=== PATIENT | female | born 1980 | race Caucasian/White ===

== ENCOUNTER 2024-12-08 17:30 | Inpatient (IN) | payer MEDICAID ==
[~2024-12-08] VITALS: Ht 162.6 cm; Wt 50.0 kg
--- NOTE | 2024-12-08 17:35 | ELECTROCARDIOGRAPH REPORT ---
[facility] Test Date: 2024-12-08 Test Time: 17:33:03 Pat Name: KORIN COLBERT Department: EMERGENCY ROOM Room: Gender: F Diesel Fitter Mechanic: EFREM : 1980 Requested By: DHRUV REICH Order Number: [id number] Reading MD: Measurements Intervals [place] Rate: 73 P: 55 OR: 123 QRS: 83 QRSD: 87 T: 83 QT: 443 QTc: 489 Interpretive Statements Sinus rhythm Probable anterior infarct, old Please click the below link to view image of tracing.
[2024-12-08 18:10] LABS: MEAN PLATELET VOLUME 8.4 FL (7.4-10.4); RED CELL DISTRIBUTION WIDTH 13.2 % (11.5-14.5)
--- NOTE | 2024-12-08 18:17 | RADIOLOGY REPORT ---
DI CHEST,SINGLE VIEW, HISTORY: CP COMPARISON: None None TECHNICAL DATA: 1 view of the chest was obtained. FINDINGS: Lines and tubes: None Cardiomediastinal silhouette: normal Pulmonary vasculature: normal Lung expansion: normal Lung airspace: normal Lung interstitium: normal Pleura: normal Pneumothorax: no Bones: Unremarkable Other: no IMPRESSION: No acute intrathoracic abnormality.
[2024-12-08 18:32] LABS: CREATININE 0.60 MG/DL (0.40-0.90); PRO BRAIN NATRIURETIC PEPTIDE 1672 PG/ML (0-125); TOTAL CARBON DIOXIDE 23.3 MMOL/L (24-32); eCRCL 102 ML/MIN; eGFR > 90 ML/MIN
--- NOTE | 2024-12-08 18:40 | Physician Documentation ---
History of Present Illness ~ Chief Complaint: Chest Pain Stated Complaint: CP Time Seen by MD: 18:14 Source: patient Mode of Arrival: Air Transport Exam Limitations: no limitations HPI 44-year-old female was transferred from [facility] for NSTEMI and pancreatitis. Patient came in to the hospital where yesterday with complaints of nausea vomiting and chest pain with elevated tropes and lipase. Patient had heparin drip initiated prior to arrival. Patient is a smoker with other history including bipolar, anxiety and depression. Patient states that the chest pain and nausea vomiting started yesterday while getting ready for bed and taking a shower she states that potentially she was having palpitations throughout the week which she attributed to her anxiety about wants to nausea and vomiting started she went to the hospital. Troponin at 10:00 p.m. on December 07 was 94.9 and 115.1 lipase was 112[address] Patient's CT scan shows pneumonia being treated with ceftriaxone and azithromycin prior to arrival at our facility troponins also improving prior to transfer Medication Reconciliation Allergies: Coded Allergies: levofloxacin (Unverified Allergy, Intermediate, 12/08/24) Past Medical History Past Medical History: Asthma, COPD, Inflammatory Bowel Dz, Kidney Stones, Anxi ety, Bipolar, Depression, Panic Disorder Past Surgical History: noncontributory Smoking Status: Current every day smoker Drug Use: marijuana Lives with: Family Lives In: Home Review of Systems All Other Systems at this time: Reviewed and Negative Cardiovascular: Reports: see HPI Physical Exam Vital Signs: RN Vital Signs have been reviewed: Yes, Temperature: 98.2, Source: Temporal, Heart Rate: 80, Respiratory Rate: 16, BP: 125/97, Pulse Oximetry: 98, Weight: 56.000 Oxygen Flow Rate: 0 Physical Exam General: Alert, no apparent distress. HEENT: PERRL, EOMI, no injection, moist mucous membranes. Neck: Full range of motion. Respiratory: Coarse rhonchi auscultated posterior bilaterally good air movement speaking in full sentences no respiratory distress noted. Chest: No accessory muscle use. Cardiovascular: Regular rate and rhythm, no murmurs. Extremities: Normal range of motion, no deformity. Neurologic: Oriented x4. Psychiatric: Normal mood and affect. Skin: Normal color, warm and dry. No edema, no ecchymosis. Progress Results/Orders Results/Orders Orders - KEVIN,ELHAM K SHORE WORKING SUPERVISOR Heparin 10,000 Unit/Ml 1ml (Heparin 10,0 (12/08/24 18:50) Cbc/Diff (12/09/24 03:00) Cbc/Diff (12/10/24 03:00) Cbc/Diff (12/11/24 03:00) Cbc/Diff (12/12/24 03:00) Cbc/Diff (12/13/24 03:00) Page Hospitalist (12/08/24 18:47) Fill Out Med Reconciliation (12/08/24 18:47) Heparin 25,000 Unit/250ml Bag (Heparin 2 (12/08/24 19:01) Completed Orders - ELHAM BROWN SHORE WORKING SUPERVISOR Heparin 25,000 Unit/250ml Bag (Heparin 2 (12/08/24 18:50) Heparin 10,000 Unit/Ml 1ml (Heparin 10,0 (12/08/24 19:05) Message To Nursing (12/08/24 19:10) Vital Signs 12/08/24 12/08/24 12/08/24 12/08/24 17:33 18:14 18:14 18:42 Temp 98.2 Pulse 82 80 Resp 16 16 18 16 B/P (MAP) 147/114 125/97 (106) Pulse Ox 98 98 O2 Flow Rate 0 0 Laboratory Tests Test 12/08/24 17:55 White Blood Count 8.6 Red Blood Count 4.95 Hemoglobin 14.9 Hematocrit 44.4 Mean Corpuscular Volume 89.5 Mean Corpuscular Hemoglobin 30.0 Mean Corpuscular Hemoglobin Concent 33.5 Red Cell Distribution Width 13.2 Platelet Count 386 Mean Platelet Volume 8.4 Neutrophils (%) (Auto) 60.0 Lymphocytes (%) (Auto) 27.0 Monocytes (%) (Auto) 10.8 Eosinophils (%) (Auto) 1.6 Basophils (%) (Auto) 0.6 Neutrophils # (Auto) 5.1 Lymphocytes # (Auto) 2.3 Monocytes # (Auto) 0.9 Eosinophils # (Auto) 0.1 Basophils # (Auto) 0.1 CBC Comment APTT (Heparin Protocol) 26 L Coagulation Comments Sodium Level 137 Potassium Level 3.5 Chloride Level 104 Carbon Dioxide Level 23.3 L Anion Gap 10 Blood Urea Nitrogen 13 Creatinine 0.60 Estimated GFR/1.73 m2 > 90 BUN/Creatinine Ratio 21.7 H Glucose Level 87 Calcium Level 8.1 L Troponin I High Sensitivity 32 Pro-B-Type Natriuretic Peptide 1672 H Albumin 3.3 L Chemistry Comments EKG/XRAY/CT/US/VASC/MRI Chest X-Ray : Additional Comments DI CHEST,SINGLE VIEW, HISTORY: CP COMPARISON: None None TECHNICAL DATA: 1 view of the chest was obtained. FINDINGS: Lines and tubes: None Cardiomediastinal silhouette: normal Pulmonary vasculature: normal Lung expansion: normal Lung airspace: normal Lung interstitium: normal Pleura: normal Pneumothorax: no Bones: Unremarkable Other: no IMPRESSION: No acute intrathoracic abnormality. Heart Score: Heart Score Response (Comments) Value History Highly Suspicious 2 EKG Normal 0 Age 45-64 1 Risk Factors 1 or 2 risk factors 1 Troponin 1-2 x's Normal limit 1 Total 5 Medical Decision Making Findings Transfer from [facility]. Heparin drip restarted. Admitting for pancreatitis NSTEMI with an elevated lipase as she had some nausea vomiting and some abdominal pain prior to arrival. Patient is a cigarette smoker. Will admit for further workup. Departure Time of Disposition: 19:12 Disposition: 09 ADMITTED INPATIENT Impression: Primary Impression: NSTEMI (non-ST elevated myocardial infarction) Additional Impressions: Pneumonia Pancreatitis Condition: Guarded Referrals: NO PRIMARY CARE PROVIDER (PCP) Education Educated: Patient Educated regarding: diagnosis, treatment, need for follow up Signature Scribe Signature: No scribe Attestation: The note accurately reflects work and decisions made by me.Elham ORELLANA 12/08/24 18:46 ELHAM BROWN NP Dec 08, 2024 18:40
[2024-12-08] MEDS ORDERED: heparin 25,000 UNIT/250ml bag 250 ML IV PRN (18:50)
[2024-12-08] MEDS ORDERED: heparin 10,000 units/1 ML INJ IV PRN (18:50)
[2024-12-08] MEDS ORDERED: HYDROmorphone/PF 0.2 MG/ML SYRINGE IV PRN (19:10)
[2024-12-08] MEDS ORDERED: HYDROcodone/acetaminophen 10/325mg tab PO PRN (19:10)
[2024-12-08] MEDS ORDERED: potassium Cl 20 mEq SR tablet PO PRN ×2 (19:10)
[2024-12-08] MEDS ORDERED: magnesium Cl slow-release 64mg tablet PO PRN (19:10)
[2024-12-08] MEDS ORDERED: mag hydrox/Alum hydrox/simeth 30ml oral suspension PO PRN (19:10)
[2024-12-08] MEDS ORDERED: magnesium hydroxide 30ml (MOM) UD suspension PO PRN (19:10)
[2024-12-08] MEDS ORDERED: HYDROcodone/acetaminophen 5mg/325mg tablet PO PRN (19:10)
[2024-12-08] MEDS ORDERED: magnesium sulf-water 2g/50mL 50 ML IV PRN (19:10)
[2024-12-08] MEDS ORDERED: magnesium sulf-water 4G/100mL 100 ML IV PRN (19:10)
[2024-12-08 19:11] LABS: INR 1.1 INR
[2024-12-08] MEDS: heparin 25,000 UNIT/250ml bag 250 ML IV PRN (19:15)
[2024-12-08] MEDS: heparin 10,000 units/1 ML INJ IV ONE (19:16)
[2024-12-08] MEDS: MESSAGE TO NURSING IV ONE (19:18)
[2024-12-08] MEDS: K and/or MAG REPLACEMENT MC SCH (19:37)
[2024-12-08] MEDS: normal saline 1000ml 1,000 ML IV SCH (19:41)
[2024-12-08] MEDS: docusate sod 100mg capsule PO SCH (19:44)
[2024-12-08] MEDS ORDERED: GABA-530 PO (20:06)
[2024-12-08] MEDS ORDERED: QUET25TA PO (20:06)
--- NOTE | 2024-12-08 21:13 | RADIOLOGY REPORT ---
INDICATION: Pancreatitis TECHNIQUE: Multiple real-time sonographic images were obtained of the right upper quadrant. COMPARISON: None FINDINGS: The liver demonstrates normal homogeneous echotexture without focal mass lesions. The liver measures 16.2 cm. Normal hepatopetal portal flow identified. No evidence of abdominal ascites or ple ural effusion. There is no intrahepatic or extrahepatic ductal dilatation. The common duct measures 0.3 cm. The gallbladder is without evidence of stone or sludge. The gallbladder wall measures 0.2 cm and is w ithin normal limits. Negative sonographic khalil's sign. The right kidney measures 12.2 cm. The right kidney is normal in contour, size, and shape. The echoge nicity is normal. Dilated renal pelvis versus mild hydronephrosis. The left kidney measures 10.4 cm. The left kidney is normal in contour, size, and shape. The echoge nicity is normal. Dilated renal pelvis versus mild hydronephrosis. The pancreas is grossly normal in appearance. The spleen is unremarkable, measuring 8.2 cm in length. The inferior vena cava is within normal limits. IMPRESSION: 1. Grossly unremarkable right upper quadrant sonogram. 2. Dilated bilateral renal pelves versus mild hydronephrosis.
[2024-12-08 21:30] VITALS: BP 135/91; PULSE 77; RESP 16; TEMP 98.6; O2SAT 95
[2024-12-08] MEDS: HYDROmorphone inj. 0.5 MG/0.5 ML DISP.SYRIN IV PRN (21:59)
--- NOTE | 2024-12-08 22:06 | HISTORY AND PHYSICAL-Residence ---
History & Physical Providers to CC Resident Creating Document: ISABEL ENRIQUEZ, RES ~ History of Present Illness Reason for Admit\Complaint: Chest pain History of Present Illness This is a 44-year-old female with a history of ADHD, anxiety, kidney stones, active tobacco use was transferred from the ER of [facility] for management of chest pain, pneumonia, pancreatitis. Patient endorses that she had a sharp pain in the left side of her chest about 9/10 in intensity radiating to the left hand associated with diaphoresis last night. She visited the nearest ER at [facility] and was given aspirin, nitroglycerin with partial relief of the pain. Serial troponins were 115, 949. Heparin drip was started and she was transferred to [facility] for further management and Cardiology consultation. Patient also endorses that she had cough with greenish brown sputum production since two days. CT scan of the chest shows multiple centrilobular pulmonary opacities in the left lower lobe suggestive of pneumonia. She also endorses having nausea, four episodes of vomiting, dry heaving and abdominal pain since the last two days. Patient has a remote history of on and off pancreatitis. She denies any fever, orthopnea, PND, palpitations, syncopal episodes. Patient endorses a strong family history of cardiac disease including CA s/p nine stents in mother with 1st heart attack at 48, CA in aunt and grandmother. Allergies: Coded Allergies: levofloxacin (Unverified Allergy, Intermediate, 12/08/24) Home Medications Home Medications Active Reported Gabapentin 100 Mg Capsule 3 Cap PO Q8H 30 Days Seroquel (Quetiapine Fumarate) 25 Mg Tablet 1 Tab PO HS 30 Days Past Medical History Past Medical History ADHD, anxiety, kidney stones, endometrial cysts Past Surgical History Surgical History Comment Tubal ligation Past Social History Social History Comment Smokes about 5-6 cigarettes a day, used to smoke about one pack per day since 25 years. Quit intermittently for eight years and restarted again. Denies heavy alcohol use, drinks about 2-3 drinks on weekends. Denies any drug use. Lives with the family at home Drug Use: Marijuana Lives with: Family Lives In: Home ROS All Other Systems: Reviewed and Negative ROS Reviewed and negative except for the pertinent positives in HPI Cardiovascular: Reports: see HPI Exam Vitals: Vital Signs Date Time Temp Pulse Resp B/P (MAP) Pulse Ox O2 Delivery O2 Flow Rate FiO2 12/08/24 21:36 78 12/08/24 21:30 98.6 16 135/91 (106) 95 Room Air 12/08/24 18:14 0 General: General: Alert, no apparent distress. HEENT: PERRL, EOMI, no injection, moist mucous membranes. Neck: Supple, no masses Full range of motion. Respiratory: Coarse rhonchi auscultated posterior more in the left lower lobe, decreased air entry, no respiratory distress noted. Bilateral wheezing in both lung matthew. Chest: No accessory muscle use. Cardiovascular: Regular rate and rhythm, no murmurs. Extremities: Normal range of motion, no deformity. Neurologic: Oriented x4. Psychiatric: Normal mood and affect. Skin: Normal color, warm and dry. No edema, no ecchymosis. Diagnostic Data Last Recorded Lab Results: 12/08/24175412/08/24 175 Diagnostic Data: Laboratory Tests Test 12/08/24 17:55 Prothrombin Time 10.8 SECONDS (9.0-12.0) INR International Normalized Ratio 1.1 INR APTT (Heparin Protocol) 26 SECONDS (45-60) L Coagulation Comments Advance Care Planning Advanced Care plannin - 30 Minutes (I spent a total of 17 minutes on reviewing various resuscitative measures/ ACP with the patient at the time of admission. The patient has decided on a full code status) Additional Plan Left lower lobe community-acquired pneumonia CT chest at the previous facility showed multiple centrilobular pulmonary opacities in the left lower lobe suggestive of pneumonia. Started on ceftriaxone, Zithromax and IV fluids NS at 100 mL/hour. Patient also has bilateral wheezing, no official diagnosis of COPD. Started on DuoNebs q.4 scheduled Chest pain, rule out ACS Troponins at the previous facility were 115, 949. Patient was started on heparin drip prior to transfer. Serial troponins here were 32, 30, 29. EKG shows sinus rhythm with no evidence of ST changes or T-wave changes. Discontinued heparin drip. Pro BNP slightly elevated at 1672. No evidence of orthopnea, PND, raised JVP, pedal edema. Follow up with the echocardiogram. Consult Cardiology in the a.m to rule out ACS. Patient has a strong family history of CA, heart score four Elevated lipase Acute abdominal pain Lipase was slightly elevated at 113. Started on IV fluids NS at the rate of 100 mL/hour. Mild Protein calorie malnutrition History of ADHD, anxiety Code Status: Full code DVT Prophylaxis: Heparin Analgesia/Sedation: [place], morphine p.r.n. Lines/Tubes: PIV Gi Prophylaxis: None Nutrition: Clear liquid diet, advance as tolerated PT: Yes Prognosis: Guarded Disposition: Admit to PCU with telemetry monitoring Isabel Pillai MD Internal Medicine Resident PGY-1 Nocturnal nightclub manager attestation of resident HP. Attestation of HP only, care immediately directed to hospitalist team - Trops neg at [place] - Stop hep gtt - Asa, statin - Augmentin x 5 days - Cardio eval - Alisha DVT proph Patient seen through remote audiovisual assessment through HIPAA compliant setup. All labs, flowsheets, and images reviewed. Date of Service: Dec 08, 2024 Billing Provider: MANUEL ALMEIDA Jr., DEEPIKA BANDI, RES Dec 08, 2024 22:06 MANUEL ALMEIDA Jr., DO Dec 09, 2024 01:48
[2024-12-09] VITALS (14 sets, daily range): BP systolic 114–141; BP diastolic 35–98; PULSE 78–109; RESP 14–20; TEMP 97.6–98.6; O2SAT 94–99
[2024-12-09 06:18] LABS: MEAN PLATELET VOLUME 8.3 FL (7.4-10.4); RED CELL DISTRIBUTION WIDTH 13.0 % (11.5-14.5)
[2024-12-09 06:45] LABS: CHOL/HDL RATIO 2.2 (0.00-4.99); CREATININE 0.51 MG/DL (0.40-0.90); LDL CHOLESTEROL 51 MG/DL (50-100); TOTAL CARBON DIOXIDE 25.1 MMOL/L (24-32); eCRCL 110 ML/MIN; eGFR > 90 ML/MIN
[2024-12-09] MEDS: ondansetron/PF 4mg/2ml inj IV PRN (06:52)
[2024-12-09] MEDS: CefTRIAXone/D5W-Rocephin 1gm 50 ML IV SCH (08:41)
[2024-12-09] MEDS: azithromycin/NS 500mg/250ml 250 ML IV SCH (08:42)
[2024-12-09] MEDS ORDERED: metoprolol tartrate 1mg/ml inj IV PRN (11:20)
[2024-12-09] MEDS ORDERED: aminophylline 250mg/10ml inj. IV PRN (11:20)
[2024-12-09] MEDS ORDERED: iohexol 300mg/ml 100ml inj. ONE (14:12)
[2024-12-09] MEDS: regadenoson 0.4mg/5ml syringe IV PRN (15:24)
[2024-12-09] MEDS: potassium Cl 40MEQ/1/2NS 520ml 520 ML IV PRN (16:51)
--- NOTE | 2024-12-09 18:33 | RADIOLOGY REPORT ---
Exam: CT CT CHEST ABDOMEN PELVIS IV CON W/ IV CONTRAST History: left up quadrant ab pain Comparison Study: None Technique: Multidetector spiral CT of the chest, abdomen and pelvis was performed from lower neck to pubic symphysis. Intravenous contrast was administered during this examination. Portal venous imagi ng was obtained. Axial, coronal and sagittal multiplanar reformats were performed by the technologist on a separate workstation. Radiation Dose : 1. Chest/Abdomen/Pelvis: CTDIvol 6 mGy, DLP 317 mGy*cm. Findings: Lower neck: Normal thyroid. Lungs: Left lower lobe pneumonia. Heart/Vascular Structures: Normal heart size. No pericardial effusion. Lymph Nodes: No adenopathy Pleura: No pleural effusion or significant pneumothorax. Liver: The liver is normal in size. No focal lesions. Normal hepatic vascular enhancement. Gallbladder and Biliary Tree: Unremarkable Spleen: Unremarkable Pancreas: The pancreas is normal in appearance without focal lesions or abnormal enhancement. Adrenal Glands: Unremarkable Kidneys: Kidneys demonstrate normal symmetric enhancement without focal lesions, calculi or hydroneph rosis. Bladder: Unremarkable Bowel: The stomach is grossly normal in appearance. Approximately 5 cm segment of intussusception is seen in a loop of small bowel in the lateral left upper quadrant. The appendix is not visualized; h owever, no secondary findings of acute appendicitis identified. Ascites: Absent Lymphadenopathy: No mesenteric, retroperitoneal or periportal lymphadenopathy. Abdominal Wall and Mesentery: Unremarkable. Vasculature: The visualized abdominal aorta is normal in size and caliber. Abdominal and pelvic vess els demonstrate normal enhancement. Pelvic Organs: IUD is in good position. Uterus is intact. Musculoskeletal: No aggressive focal bony lesions, acute fractures or dislocation. IMPRESSION: 1. Approximately 5 cm segment of intussusception is seen in a loop of small bowel in the lateral left upper quadrant. 2. Left lower lobe pneumonia.
--- NOTE | 2024-12-09 18:48 | CARDIOLOGY REPORT ---
APPROVED REPORT EXAM: Comprehensive 2D, Doppler, and color-flow Echocardiogram. Patient Location: 3023 A Blood Pressure: 134/90 mmHg Heart Rate: 76 bpm Rhythm: SINUS Indications CHEST PAIN ELEVATED PROBNP (1672) Combine Inspector: none Previous echo: none 2D Dimensions RVDd 3.2 cm IVSd 1.0 (0.7-1.1cm) LVDd 4.4 cm PWd 1.1 (0.7-1.1cm) IVSs 1.3 (0.8-1.2cm) LVDs 3.2 (2.5-4.0cm) PWs 1.5 (0.8-1.2cm) LVOT Diameter 2.18 (1.8-2.4cm) LVEF(%) 54.9 (>50%) FS (%) 28.3 % SV 48.7 ml CO 3.3 L/min M-Mode Dimensions Left Atrium(MM) 3.14 (2.5-4.0cm) IVSd 0.83 (0.7-1.1cm) LVDd 4.52 (4.0-5.6cm) Aortic Root 4.00 (2.2-3.7cm) PWd 0.96 (0.7-1.1cm) Aortic Cusp Exc 2.08 (1.5-2.0cm) IVSs 1.03 cm MV EPSS 0.3 (<0.5cm) LVDs 3.49 (2.0-3.8cm) FS (%) 23 % PWs 1.35 cm ESV(Teich) 50.6 ml LVEF(%) 46 (>50%) Aortic Valve AoV Peak Cale. 103.8 cm/s AoV VTI 13.9 cm AO Peak GR. 4.3 mmHg AO Mean GR. 3 mmHg LVOT VTI 16.26 cm LVOT Peak Cale. 96.0 cm/s RYLAN(VTI)/BSA 4.36 cm2/m2 RYLAN (VTI) 4.36 cm2 Mitral Valve MV E Velocity 41.4 cm/s MV Peak Gr. 3 mmHg MV DECEL TIME 296 ms MV A Velocity 54.7 cm/s MV PHT 44 ms E/A Ratio 0.8 MVA (PHT) 5.00 cm2 MV VMax91.6 cm/s TDI Medial E' P. V 7.09 cm/s E/Medial E' 5.8 Pulmonary Vein S1 Velocity 69.4 cm/s D2 Velocity 46.9 cm/s PVa Nihxzlfd07.7 cm/s PVa Kaktovvs663 msec LEFT VENTRICLE Normal LV size and wall thickness. Overall systolic function is mildly reduced to low normal. LVEF is 50-55%. RIGHT VENTRICLE RV is mildly dilated with normal systolic function. ATRIA LA size is normal. RA size is normal. Mobile interatrial septum - no flow detected. AORTIC VALVE Trileaflet AV appears mildly sclerotic without stenosis. Mild insufficiency. MITRAL VALVE Mild MV annular calcification without stenosis. Trace regurgitation. TRICUSPID VALVE TV appears structurally normal with trace regurgitation. PULMONIC VALVE Normal PV without stenosis, physiologic insufficiency. GREAT VESSELS Aortic root is dilated and appears abnormal. ?Intimal tear at the sinus of Valsalva. Recommend clinic al correlation if indicated. Ascending aorta is not well visualized. PERICARDIUM Normal pericardium. No effusion. Other Information Study Quality: Adequate Conclusion Normal LV size and wall thickness. Overall systolic function is mildly reduced to low normal. LVEF is 50-55%. RV is mildly dilated with normal systolic function. LA size is normal. RA size is normal. Mobile interatrial septum - no flow detected. Trileaflet AV appears mildly sclerotic without stenosis. Mild insufficiency. Mild MV annular calcification without stenosis. Trace regurgitation. TV appears structurally normal with trace regurgitation. Aortic root is dilated and appears abnormal. ?Intimal tear at the sinus of Valsalva. Recommend clinic al correlation if indicated. Normal pericardium. No effusion.
[2024-12-09] MEDS: enoxaparin 40mg/0.4ml syringe SUBCUT SCH (19:58)
--- NOTE | 2024-12-09 20:02 | PROGRESS NOTE ---
Daily Progress Note Providers to CC ~ Antibiotic Timeout Antibiotic Ordered?: Yes Subjective The Patient informs me that she has had episodes that are intermittent where she can not eat food and everything makes her nauseate the patient also has a moderate to significant amount of tenderness in the left lower quadrant on exam of her abdomen a CT scan was obtained with IV contrast that demonstrated likely intussusception in the small bowel in the left upper quadrant I reviewed the case with Dr. Garcia surgeon who recommended a CT scan with the overnight oral contrast prep Objective Vital Signs Date Time Temp Pulse Resp B/P (MAP) Pulse Ox O2 Delivery O2 Flow Rate FiO2 12/09/24 15:22 101 16 139/90 94 Room Air 0.0 12/09/24 11:00 97.8 Result Diagram: 12/09/2448 12/09/24 0548 Gen. No acute distress alert and oriented 4 Lungs clear to ascultation bilaterally, no wheezes rales or rhonchi appreciated Heart normal sinus rhythm no murmurs rubs or clicks noted Abdomen soft nontender bowel sounds are normoactive Lower extremities no clubbing cyanosis, nor edema appreciated bilaterally Coagulation Studies Laboratory Tests Test 12/08/24 17:55 Prothrombin Time 10.8 SECONDS (9.0-12.0) INR International Normalized Ratio 1.1 INR APTT (Heparin Protocol) 26 SECONDS (45-60) L Coagulation Comments Problem\Assessment\Plan Problems/Diagnosis: (1) Pancreatitis Left lower lobe community-acquired pneumonia CT chest at the previous facility showed multiple centrilobular pulmonary opacities in the left lower lobe suggestive of pneumonia. Started on ceftriaxone, Zithromax and IV fluids NS at 100 mL/hour. Patient also has bilateral wheezing, no official diagnosis of COPD. Started on DuoNebs q.4 scheduled Acute on chronic abdominal pain Pancreatitis Triglyceride levels are normal Daily lipase is ordered CT scan of the abdomen and pelvis with IV contrast demonstrated intussusception in the small bowel in the left upper quadrant I discussed the case with Dr. Garcia surgeon who recommended the CT scan of the abdomen and pelvis with the overnight oral contrast prep Mild Protein calorie malnutrition History of ADHD, anxiety Evaluated by registered dietitian Chest pain Elevated troponin at an outside facility Echocardiogram is unremarkable Lexiscan stress test is obtain awaiting radiology read Hypokalemia On potassium replacement protocol Date of Service: Dec 09, 2024 Billing Provider: ROBACK,ARVIND T DO Common Visit Codes: [id number] INP/OBS CARE(HIGH) ARVIND SHOEMAKER DO Dec 09, 2024 20:02
[2024-12-09] MEDS: diatr meglu/diatrizoate 30ml oral sol.-(3 dose) bottle PO SCH (21:29)
--- NOTE | 2024-12-10 05:09 | RADIOLOGY REPORT ---
Reason for study/Clinical History: chest pain Comparison Study: None Myocardial Perfusion Study with SPECT Technique: The patient received an intravenous injection of 6.7 mCi of technetium-99m Sestamibi whi boogie at rest. After a short delay, SPECT tomographic images of the heart were obtained. The patient laurel carrizales went to the stress lab where they received an intravenous Lexiscan utilizing standard protocol. 29 mCi of technetium-99m Sestamibi was injected intravenously immediately after the start of the in fusion. Gated SPECT tomographic images of the heart were acquired and processed. Findings: Rotating planar images show no significant attenuation artifact. The left ventricular size is within normal limits. Subtle reversible defect in the anterior wall. The left ventricular ejection fraction is 48 %. (normal greater than 50%) Impression: Subtle reversible defect is present in the anterior wall seen on horizontal long axis views. This is felt to most likely represent artifact versus less likely small area of the ischemia. Clinical sharif elation advised.
[2024-12-10 05:42] LABS: MEAN PLATELET VOLUME 8.4 FL (7.4-10.4); RED CELL DISTRIBUTION WIDTH 12.9 % (11.5-14.5)
[2024-12-10 05:57] LABS: CREATININE 0.56 MG/DL (0.40-0.90); TOTAL CARBON DIOXIDE 25.0 MMOL/L (24-32); eCRCL 100 ML/MIN; eGFR > 90 ML/MIN
[2024-12-10 06:00] VITALS: BP 140/97; PULSE 76; RESP 14; TEMP 97.3; O2SAT 98
[2024-12-10 08:00] VITALS: RESP 14; O2SAT 98
[2024-12-10] MEDS: aspirin 81mg, enteric-coated 1 TAB TABLET.DR PO SCH (08:00)
--- NOTE | 2024-12-10 08:56 | RADIOLOGY REPORT ---
Exam: CT CT ABDOMEN PELVIS W/ ORAL CONTRAST History: Intussusception seen on small-bowel in the left upper quadrant Comparison Study: CT scan of the abdomen pelvis performed on 12/09/2024. Technique: Multidetector spiral CT of the abdomen and pelvis was performed from lung bases to pubic s ymphysis. Imaging was performed without intravenous contrast. Enteric contrast was given. Coronal and sagittal multiplanar reformats were obtained from the axial data set by the technologist. Radiation Dose : 1. Abdomen/Pelvis: CTDIvol 7.3 mGy, DLP 349.66 mGy*cm. Findings: Evaluation of vasculature and solid organs is limited due to lack of intravenous contrast use. Lung Bases: Left lower lobe infiltrate similar to prior study. Normal heart size. No pericardial ef fusion. Liver: The liver is normal in size. No focal lesions. Gallbladder and Biliary Tree: The gallbladder is unremarkable. No intrahepatic or extrahepatic bilia ry ductal dilatation. Spleen: Unremarkable Pancreas: The pancreas is grossly unremarkable. Adrenal Glands: Unremarkable Kidneys: Kidneys are unremarkable without calculi or hydronephrosis. GI tract: The stomach is grossly normal in appearance. Enteric contrast opacifies the stomach as well as several nondilated small bowel loops. The previously seen jejunal - jejunal intussusception in t he left upper quadrant has resolved. There is enteric contrast scattered throughout the ascending, tr ansverse and descending colon without wall thickening. Normal caliber appendix which is opacified wi th enteric contrast. No inflammatory changes. Peritoneum/mesentery/retroperitoneum. No evidence of free intraperitoneal air. No ascites. No evidenc e of suspicious lymphadenopathy. Abdominal Wall: Unremarkable. Vasculature: The visualized abdominal aorta is normal in size and caliber. Evaluation of abdominal a nd pelvic vessels is limited due to lack of intravenous contrast. Urinary Bladder: Grossly unremarkable for degree of distention. Pelvic Organs: Intrauterine device is present. No adnexal mass. Musculoskeletal: No aggressive focal bony lesions, acute fractures or dislocation. IMPRESSION: 1. Resolution of the previously demonstrated jejunal jejunal intussusception. 2. No acute process in the abdomen or pelvis.
[2024-12-10 10:37] VITALS: BP 133/91; PULSE 73; RESP 15; TEMP 97.5; O2SAT 94
[2024-12-10] MEDS ORDERED: CEFD300C3 PO (13:40)
[2024-12-10] MEDS ORDERED: AZIT500T9 PO (13:40)
[2024-12-10] MEDS ORDERED: PROM25TA14 PO (13:40)
--- NOTE | 2024-12-10 22:42 | DISCHARGE SUMMARY ---
Discharge Summary Providers to CC ~ Discharge Summary Admission Diagnosis: Pancreatitis, pneumonia Hospital Course DATE OF ADMISSION: 12/09/2024 DATE OF DISCHARGE: 12/11/2024 Discharge Diagnosis\\Comment: Left lower lobe community-acquired bacterial pneumonia NOS, acute pancreatitis, mild protein calorie malnutrition, chest pain likely secondary to esophagitis, hypokalemia, possible intussusception Operations\\Procedures: None Consultants: None Complications: None Condition on DC: Stable New Medications: Azithromycin (Azithromycin) 500 Mg Tablet 1 TAB PO DAILY for 3 Days, #3 TAB 0 Refills Cefdinir* (Cefdinir*) 300 Mg Capsule 1 CAP PO Q12H, #10 CAP Promethazine HCl (Promethazine HCl) 25 Mg Tablet 25 MG PO Q6H PRN for nausea/vomiting, #14 TAB 1 Refill Continued Medications: Gabapentin (Gabapentin) 100 Mg Capsule 3 CAP PO Q8H for 30 Days, #90 CAP 0 Refills Quetiapine Fumarate (Seroquel) 25 Mg Tablet 1 TAB PO HS for 30 Days, #30 TAB 0 Refills Discharge Summary: The patient was admitted by resident physician JEREL FischerIKA JAQUELINE, under the supervision of MANUEL ALMEIDA Jr., DO the following HPI:"This is a 44-year-old female with a history of ADHD, anxiety, kidney stones, active tobacco use was transferred from the ER of [facility] for management of chest pain, pneumonia, pancreatitis. Patient endorses that she had a sharp pain in the left side of her chest about 9/10 in intensity radiating to the left hand associated with diaphoresis last night. She visited the nearest ER at [facility] and was given aspirin, nitroglycerin with partial relief of the pain. Serial troponins were 115, 949. Heparin drip was started and she was transferred to [facility] for further management and Cardiology consultation. Patient also endorses that she had cough with greenish brown sputum production since two days. CT scan of the chest shows multiple centrilobular pulmonary opacities in the left lower lobe suggestive of pneumonia. She also endorses having nausea, four episodes of vomiting, dry heaving and abdominal pain since the last two days. Patient has a remote history of on and off pancreatitis. She denies any fever, orthopnea, PND, palpitations, syncopal episodes. Patient endorses a strong family history of cardiac disease including [place] s/p nine stents in mother with 1st heart attack at 48, [place] in aunt and grandmother." Due to the patient's family history is cardiac disease or Lexiscan stress test was obtained which demonstrated the following findings: Subtle reversible defect is present in the anterior wall seen on horizontal long axis views. This is felt to most likely represent artifact versus less likely small area of the ischemia. Clinical correlation advised. I reviewed these findings with Dr. Carrneo balloon tester's who assessed that the Lexiscan stress test was likely an artifact and not a positive stress test recommended the patient follow up with the primary care provider and get a repeat lipid panel as the patient is panel currently is stellar with a triglycerides of 113 total cholesterol of 124 and LDL of 51 and an HDL of 56. Echocardiogram was obtained which demonstrated an LVEF of 50-55% and there was no wall motion abnormalities which was reviewed with Dr. Carreno as well. The patient has had significant abdominal tenderness and states that she has had multiple episodes of abdominal pain nausea and vomiting which she can not tolerate food at the time however then these episodes resolve. IR urinary IV contrast CT scan of the abdomen and pelvis which demonstrated intussusception of the small intestine I reviewed these findings with Dr. Garcia surgeon who recommended repeating a CT scan with the overnight oral contrast prep of the abdomen and pelvis which demonstrated resolution of the intussusception- the patient is to follow up with primary care provider to discuss these findings The patient has hypokalemia which resolved serum potassium of 3.0 on the 14th and was 4.1 on the day discharge. The patient is admitted with mild pancreatitis her serum lipase was 113 on repeat labs her serum lipase was 22. Gen. No acute distress alert and oriented 4 Lungs clear to ascultation bilaterally, no wheezes rales or rhonchi appreciated Heart normal sinus rhythm no murmurs rubs or clicks noted Abdomen soft nontender bowel sounds are normoactive Lower extremities no clubbing cyanosis, nor edema appreciated bilaterally The patient felt ready to be discharged and was medically cleared to be discharged on 12/10/2024 The patient was seen and evaluated on day of discharge. Time spent on discharge 40 minutes *Problems/Diagnosis: (1) Pancreatitis Status: Acute Total Time Spent on D/C: > 30 Minutes Date of Service: Dec 10, 2024 Billing Provider: ARVIND SHOEMAKER DO Common Visit Codes: 94816-TLV/OBS DISCH DAY >30min ARVIND SHOEMAKER DO Dec 10, 2024 22:42
== END 2024-12-10 15:24 | disposition home or self-care (01) | DRG 190 ==
LOC: ER 17:31 → PCU 3S 19:22 → UNDOADMIN 21:23 → PCU 3S 21:23
PROVIDERS: ADMIT Internal Medicine Critical Care Medicine; ATTEND Family Medicine
PROC: BW251ZZ Computerized Tomography (CT Scan) of Chest, Abdomen and Pelvis using Low Osmolar Contrast (ICD-10-PCS; principal; 2024-12-09)
PROC: 4A02XM4 Measurement of Cardiac Total Activity, External Approach (ICD-10-PCS; 2024-12-09)
PROC: 3E033HZ Introduction of Radioactive Substance into Peripheral Vein, Percutaneous Approach (ICD-10-PCS; 2024-12-09)
DX: I21.4 Non-ST elevation (NSTEMI) myocardial infarction (principal); E44.1 Mild protein-calorie malnutrition; K56.1 Intussusception; K85.90 Acute pancreatitis without necrosis or infection, unspecified; J15.9 Unspecified bacterial pneumonia; Z68.1 Body mass index [BMI] 19.9 or less, adult; E87.6 Hypokalemia; K20.90 Esophagitis, unspecified without bleeding; J44.0 Chronic obstructive pulmonary disease with (acute) lower respiratory infection; F90.9 Attention-deficit hyperactivity disorder, unspecified type; F41.9 Anxiety disorder, unspecified; F31.9 Bipolar disorder, unspecified; Z82.49 Family history of ischemic heart disease and other diseases of the circulatory system; Z87.891 Personal history of nicotine dependence; Z88.1 Allergy status to other antibiotic agents
CPT/HCPCS: 36415; 71045; 71250; 74176; 74177; 76700; 78452; 80048; 80053; 80061; 80076; 83036; 83605; 83690; 83735; 83880; 84484; 85025; 85610; 85730; 87040; 87077; 87081; 87186; 93005; 93017; 93306; 97116; 97161; A9500; G0378; J0456; J0696; J1171; J1644; J1650; J2405; J2785; J3480; J7030; J7040; Q0169; Q9963; Q9967